=== PATIENT | female | born 1985 | race Caucasian/White ===

== ENCOUNTER 2016-06-16 19:12 | Inpatient (IN) ==
[2016-06-16 20:41] LABS: MANUAL DIFF NEEDED? NO
[2016-06-16 20:48] LABS: BASO% 0.2 % (0.0-0.8); EOS# 0.78 X1000 (0.0-0.7); EOS% 9.1 % (0.0-10.0); HEMATOCRIT 37.8 % (37.0-47.0); HEMOGLOBIN 12.1 g/dL (12.0-16.0); IMM GRAN# 0.02 X1000 (0.0-0.04); IMM GRAN% 0.2 % (0.0-0.5); LYMPH# 2.02 X1000 (1.2-3.4); LYMPH% 23.5 % (20.5-51.1); MCH 26.8 PG (27-31); MCV 83.8 FL (81-99); MONO# 0.65 X1000 (0.11-0.59); MONO% 7.6 % (1.7-9.3); MPV 10.3 FL (7.4-10.4); NEUT% 59.4 % (42.2-75.2); PLT 304 X1000 (130-400); RBC 4.51 XMIL (4.2-5.4)
[2016-06-16 20:49] LABS: URINE SOURCE CLEAN CATCH
[2016-06-16 21:02] LABS: AGAP 9; ALBUMIN 3.9 g/dL (3.5-5.0); ALKALINE PHOSPHATASE 94 U/L (32-104); AMYLASE 37 U/L (20-200); BUN 11 mg/dL (8-22); CALCIUM 8.9 mg/dL (8.8-10.2); CHLORIDE 100 mmol/L (98-107); COSMO 273; GOT 18 U/L (10-30); GPT 21 U/L (10-36); LIPASE 18 U/L (13-60); POTASSIUM 3.5 mmol/L (3.5-5.1); SODIUM 137 mmol/L (136-145); TCO2 28 mmol/L (25-35); TOTAL PROTEIN 6.9 g/dL (6.3-8.3)
[2016-06-16 21:36] LABS: BILIRUBIN URINE NEGATIVE (NEGATIVE); BLOOD URINE TRACE (NEGATIVE); CLARITY CLEAR (CLEAR); COLOR YELLOW; GLUCOSE URINE NEGATIVE (NEGATIVE); LEUKOCYTES URINE TRACE (NEGATIVE); NITRITE URINE NEGATIVE (NEGATIVE); PROTEIN URINE NEGATIVE (NEGATIVE); URINE EPITHELIAL CELLS <10 /HPF (<10); URINE RBC <10 /HPF (<10); URINE WBC <10 /HPF (<10); UROBILINOGEN URINE 4+(12 mg/dL)
[2016-06-16 21:37] LABS: URINE CULTURE PL NEEDED? YES
[2016-06-16] MEDS ORDERED: MORPHINE IV ONE (22:07)
[2016-06-16] MEDS ORDERED: ZOFRAN IV ONE ×2 (22:07→23:53)
[2016-06-16] MEDS ORDERED: NS 1,000 ML IV ONE (22:07)
[2016-06-16] MEDS ORDERED: ZOSYN 3.375 GM/NS 50 ML IV ONE (23:50)
--- NOTE | 2016-06-16 23:51 | PROVIDER DOCUMENTATION ---
HPI-Abdominal Pain/GI Problem - General Chief Complaint: Abdominal Pain Stated Complaint: RIGHT SIDE PAIN Time Seen by Provider: 06/16/16 20:16 Source: patient Allergies/Adverse Reactions: Patient Allergies Allergy/AdvReac Type Severity Reaction Status Date / Time latex Allergy SWELLING Verified 08/20/15 09:51 Home Medications: No Home Medications 06/16/16 - History of Present Illness-ABD Nature of Presenting Problems: 30 year old F presents to the ED with a cc of RLQ ABD pain, nausea, vomiting, diarrhea, fever, and chills with an onset of 2 days ago. PT is 3 weeks post . Abdominal Pain Onset Location: reports: RLQ Pain Radiation: reports: no radiation Quality of Pain: reports: aching Severity in ED: reports: mild Onset/Duration: reports: 2 days ago Timing: reports: still present Activities at Onset: reports: none Modifying Factors: improves with: nothing Associated Symptoms: reports: diarrhea, fatigue, fever/chills, nausea, vomiting Bruising or Bleeding Gums?: No Similar Symptoms Previously?: No Recently seen or treated by another doctor?: No Review of Systems - Adult - REVIEW OF SYSTEMS - ADULT Constitutional: reports: chills, fever, fatique Eyes: reports: no symptoms reported Ears, Nose, Mouth & Throat: reports: no symptoms reported Cardiovascular: reports: no symptoms reported Respiratory: denies: cough, shortness of breath Gastrointestinal: reports: abdominal pain, diarrhea, nausea, vomiting Genitourinary: reports: no symptoms reported Musculoskeletal: reports: no symptoms reported Integumentary: reports: no symptoms reported Neurological: reports: no symptoms reported Psychiatric: reports: no symptoms reported Endocrine: reports: no symptoms reported Hematologic/Lymphatic: reports: no symptoms reported Allergic/Immunologic: reports: no symptoms reported All Other Systems: Reviewed and Negative Past History - Adult - PAST MEDICAL HISTORY-ADULT Review of Records: reports: Nursing Assessment Review, Medications Reviewed Major Childhood Illnesses: reports: denies history Obstetrical/Gynecological: reports: other (cervical cancer) Genitourinary: reports: chronic UTI's, other (STD'S, BACTERAL VAGINOSIS, LAST std 2008) - PRIOR SURGERIES/PROCEDURES Surgical/Procedure History: reports: tonsillectomy - IMMUNIZATION STATUS Childhood Immunizations: See Nurse Assessment Flu Vaccine: See Nurse Assessment Physical Exam-General - PHYSICAL EXAM-ADULT Initial Vital Signs Reviewed: Yes - CONSTITUTIONAL General Appearance: appears well, alert, no apparent distress - RESPIRATORY Respiratory: chest non-tender, lungs clear, normal breath sounds - CARDIOVASCULAR Cardiovascular: normal peripheral pulses, regular rate, rhythm, no edema - GASTROINTESTINAL (ABDOMEN) Abdominal Exam: normal bowel sounds, soft, tenderness (RLQ), McBurney's point tenderness. negative: obturator sign, prominent aortic pulsations, psoas, Rovsing's sign - MUSCULOSKELETAL Extremity: normal inspection - SKIN Integumentary: normal color, normal turgor, warm/dry - PSYCHIATRIC Psych/Mental Status: normal mood/affect, normal thought content, normal thought process, oriented x 3 Progress - PLAN OF CARE/RESULTS Progress/Plan/Lab Results: plan of care: imaging, labs, fluids, medications 0031: Dr. Palencia at bedside with pt. Orders Category Date Time Status CT ABD/PELVIS W/ IV CONT ONLY [CT] Stat Exams 06/16/16 22:07 Taken FLAT/UPRIGHT ABD/1 VIEW CHEST [RAD] Stat Exams 06/16/16 19:49 Taken AMYLASE [CHEM] Stat Lab 06/16/16 20:26 Completed CBC WITH DIFF [HEME] Stat Lab 06/16/16 20:26 Completed COMPREHENSIVE METABOLIC PANEL [CHEM] Stat Lab 06/16/16 20:26 Completed LIPASE [CHEM] Stat Lab 06/16/16 20:[address] W/POSS RFLX CULT [URINALYSIS] Stat Lab 06/16/16 19:50 Completed URINE CULTURE [RM] Routine Lab 06/16/16 21:37 Received 0.9% Sodium Chloride Inj [Ns] 1,000 ml Med 06/16/16 22:07 Discontinued IV 999 mls/hr Morphine Med 06/16/16 22:07 Discontinued 4 mg IV NOW ONE Ondansetron [Zofran] Med 06/16/16 22:07 Discontinued 4 mg IV NOW ONE Piperacil/Tazobact 3.375 gm/Ns [Zosyn 3.375 gm/Ns] 50 Med 06/16/16 23:50 Active ml IV NOW Vital Signs - 24 hr 06/16/16 19:45 Temperature 99 F Pulse Rate 80 Respiratory 18 Rate Blood Pressure 125/76 O2 Sat by Pulse 99 Oximetry Pt/Family given results. Pt will be admitted to Dr. Palencia. PT/Family in agreement with plan of care. - XRAY 1 XRAY Study: Abdomen Impression: Normal XRAY Interpretation: chest: NAD ABD: NSBGP : Dr. García - CT/MRI 1 CT Study: Abdomen, Pelvis Impression: Abnormal CT Results: acute appendicitis - CONSULTS/PCP/HOSPITALIST Notification #1 *Consult/PCP/Hospitalist*: Real Rad Time Discussed: 23:46 Consult Disposition: other (acute appendicitis) #2 Consult: Dr. Palencia Time Discussed: 23:49 Consult Disposition: Will see in ED, Admit ([facility]) Departure - Departure Time of Disposition Order: 00:15 DIAGNOSIS: Appendicitis Qualifiers: Appendicitis type: acute appendicitis Acute appendicitis type: unspecified acute appendicitis type Qualified Code(s): K35.80 - Unspecified acute appendicitis Disposition: ADMITTED INPATIENT 09 Certified Medical Emergency: Emergent Condition: Stable Attestation - Scribe Verification/Attestation Scribe:: Dee Domínguez Acting as Scribe for:: Irvin Mcdonnell Scribe documention review:: This chart was documented by a scribe and accurately reflects the service the provider performed and the decisions made by the provider. Physician Attestation - Physician Attestation I, the provider, attest to the following statement:: Irvin Mcdonnell Physician documentation Attestation:: This documentation recorded by the scribe accurately reflects the service I personally performed and the decisions made by me.
[2016-06-16] MEDS ORDERED: DILAUDID IV ONE (23:53)
--- NOTE | 2016-06-17 01:44 | HISTORY AND PHYSICAL ---
DATE OF ADMISSION: 06/17/2016 HISTORY OF PRESENT ILLNESS: This is a 30-year-old female, who is now 3 weeks from a vaginal delivery of a healthy boy, who presented with approximately 12 hours of right lower quadrant/periumbilical pain. This pain has progressed. Initially it started off as a vague, kind of crampy type pain, that radiated from her umbilicus to more focal severe pain in the right lower quadrant. She has had decreased appetite with this. Denies any nausea, vomiting, and no fevers. This prompted her admission to the emergency department, where a CT scan was obtained, that showed evidence of acute appendicitis. REVIEW OF SYSTEMS: Ten point negative except for what is mentioned in her HPI. PAST MEDICAL HISTORY: No chronic medical issues. PAST SURGICAL HISTORY: 1. She has had several laparoscopic procedures for what sounds like gynecologic issues, unclear exactly what these might be, and she has also had a cervical resections or ablations for dysplasia. 2. Tonsillectomy, adenoidectomy. SOCIAL HISTORY: Quit smoking approximately a year ago, when she became . Quit alcohol around a year ago as well. She did drink recently since delivering. Denies any other drugs. FAMILY HISTORY: Stroke, heart disease and some cancers. MEDICATIONS: None. PHYSICAL EXAM: General: She is alert, lying in bed. Cardiovascular: Normal rate, regular rhythm. Pulmonary: No increased work of breathing. Abdominal: Soft, nondistended. She has focal tenderness in her right lower quadrant with some rebound and guarding here. There is no evidence of diffuse peritonitis. Integument: Warm, dry without jaundice, and no lower extremity edema is noted. LABS: I reviewed her labs. White count is normal at 8, hematocrit also is appropriate for this patient. Creatinine is normal as well. Urinalysis shows no signs of gross infection. CT of abdomen pelvis with IV contrast shows a dilated fluid-filled appendix with stranding. I don't see any significant amount of free fluid around the appendix to suggest perforation. There I no free air. ASSESSMENT AND PLAN: A 30-year-old female with acute appendicitis. I do not see any evidence of perforation. She received IV antibiotics in the emergency department. We discussed risks, benefits, alternatives with the patient. She consents to a laparoscopic appendectomy. We discussed the possibility of findings, perforation, time of surgery, and that her chance of abscess if this develops, if this were to occur is much higher. We will transfer to [facility], and plan to proceed to the operating room early this morning.
[2016-06-17] MEDS ORDERED: XYLOCAINE 1%/EPI 1:100,000 ONE (05:00)
[2016-06-17] MEDS ORDERED: SENSORCAINE 0.25%/EPI 1:200,000 ONE (05:00)
[2016-06-17] MEDS ORDERED: LR 1,000 ML ONE ×2 (05:00→06:41)
[2016-06-17] MEDS: MORPHINE ONE ×2 (06:22→06:29)
[2016-06-17] MEDS ORDERED: FENTANYL ONE (06:25)
[2016-06-17] MEDS ORDERED: DIPRIVAN 1% ONE (06:26)
[2016-06-17] MEDS ORDERED: ZOSYN 3.375 GM/NS 50 ML IV ONE (07:00)
[2016-06-17] MEDS ORDERED: LR 1,000 ML IV SCH (07:05)
--- NOTE | 2016-06-17 07:49 | Diag Imaging Result Document ---
PROCEDURE NAME: FLAT/UPRIGHT ABD/1 VIEW CHEST - 06/16/2016 FRONTAL CHEST X-RAY AND 2 VIEWS OF THE ABDOMEN, 06/16/2016: COMPARISON: None. FINDINGS: The chest is clear. There is a nonobstructive bowel gas pattern. No free air or abnormal calcifications. IMPRESSION: No acute disease.
--- NOTE | 2016-06-17 08:25 | Diag Imaging Result Document ---
PROCEDURE NAME: CT ABD/PELVIS W/ IV CONT ONLY - 06/16/2016 CT ABDOMEN AND PELVIS WITH INTRAVENOUS CONTRAST: A CT dose reduction protocol was used. COMPARISON: None. FINDINGS: The lung bases are clear and the heart size is normal. There is probably a tiny left renal stone that is nonobstructing measuring about 2 mm. The liver, gallbladder , spleen, pancreas, and adrenals are normal. The vermiform appendix is fluid filled and dilated with abnormal enhancement. No free air or free fluid. There is mild constipation. Urinary bladder, uterus, and rectum are normal. Bony structures are intact. IMPRESSION: 1. Acute appendicitis. 2. Probable nonobstructing left renal stone. 3. Constipation. [facility]
[2016-06-17] MEDS ORDERED: ZOFRAN ONE (08:27)
[2016-06-17] MEDS ORDERED: NEOSTIGMINE ONE (08:27)
[2016-06-17] MEDS ORDERED: NORCURON ONE (08:27)
[2016-06-17] MEDS ORDERED: EXTENSION SET 32 IN 4522 ONE (08:28)
[2016-06-17] MEDS ORDERED: ROBINUL ONE (08:28)
[2016-06-17] MEDS ORDERED: XYLOCAINE-MPF 2% ONE (08:28)
[2016-06-17] MEDS ORDERED: LR 2,000 ML ONE (08:28)
[2016-06-17] MEDS ORDERED: ANESTHESIA PB SET 88 IN 5742 ONE (08:28)
[2016-06-17] MEDS ORDERED: DECADRON ONE (08:28)
[2016-06-17] MEDS ORDERED: QUELICIN (DOSE) ONE (08:28)
[2016-06-17] MEDS: NORCO-7.5 PO PRN ×3 (08:49→18:13)
[2016-06-17] MEDS: ZOFRAN IV PRN ×2 (08:50→12:50)
--- NOTE | 2016-06-17 09:58 | OPERATIVE NOTE ---
PROCEDURE DATE: 06/17/2016 PREOPERATIVE DIAGNOSIS: Acute appendicitis. POSTOPERATIVE DIAGNOSIS: Acute appendicitis. PROCEDURE PERFORMED: Laparoscopic appendectomy. COMPLICATION: None. ESTIMATED BLOOD LOSS: 10 mL. SPECIMENS: Appendix. OPERATIVE INDICATIONS: This is a 30-year-old female, 3 weeks , who presented with worsening right lower quadrant pain. CT scan showed a dilated fluid-filled appendix with stranding. She had an exam consistent with acute appendicitis. OPERATIVE FINDINGS: There is a non-perforated, inflamed, distended appendix and, otherwise, normal adnexal structures. The uterus was quite large and boggy consistent with her state. OPERATIVE NOTE: Risks, benefits, alternatives were discussed with the patient, and she consented to the procedure. She was initiated on scheduled antibiotics in the Emergency Department. Procedure to be performed was confirmed in the preoperative area. She was taken to the operating room where general anesthesia was induced without complication. Celis catheter was placed. Her abdomen is prepped with chlorhexidine solution and draped in usual fashion and she was secured to the bed. Time-out was performed between the nursing, surgical, and anesthesia staff. All agreed with the procedure. After time-out was performed, a periumbilical block was made with local anesthetic. We made a curvilinear infraumbilical incision and carried this down to the fashion and incised the fascia along the midline and entered the abdomen in a controlled fashion and placed a 12 mm Anel trocar and split that in 15 mmHg. We then placed a 5 mm trocar in the suprapubic location under direct visualization above the level of the bladder and then one in the left lower quadrant lateral to the epigastric vessels care made to protect these. We placed her in Trendelenburg position, grasped the cecum, elevated this, and the appendix became apparent. We made a hole in the mesentery at the base of the appendix and divided the appendix from the base of the cecum with a gold-load 30 mm stapler. This required 2 fires as there were some small residual left posteriorly. We then used another gold-load stapler to take the mesoappendix. We inspected the stump. It was good closure. There was hemostasis. We then placed the appendix in the EndoCatch bag. Irrigated the wound. After inspecting the abdomen, again, we desufflated the abdomen. We removed our trocars under direct visualization prior to deflating. Closed the fascia with interrupted 0 Vicryl sutures, closed the skin with 4-0 Monocryl. All sponge, instrument, and needle counts were correct x2. We passed the specimen off the table. She tolerated it well. The Celis was removed. The patient was transferred to PACU in good condition, and I spoke with the family.
[2016-06-17 15:49] VITALS: BP 116/77
== END 2016-06-17 19:05 | disposition home or self-care (01) | DRG 769 ==
LOC: P.ED 19:12 → 4N 06-17 00:26
PROVIDERS: ADMIT Surgery; ATTEND Surgery
PROC: 0DTJ4ZZ Resection of Appendix, Percutaneous Endoscopic Approach (ICD-10-PCS; principal; 2016-06-17 05:09)
DX: O99.63 Diseases of the digestive system complicating the puerperium (principal); K35.80 Unspecified acute appendicitis; Z85.41 Personal history of malignant neoplasm of cervix uteri; Z87.440 Personal history of urinary (tract) infections; Z87.891 Personal history of nicotine dependence; Z82.49 Family history of ischemic heart disease and other diseases of the circulatory system
CPT/HCPCS: 74022; 74177; 80053; 81001; 82150; 83690; 85025; 87088; 88304; J0330; J1100; J1170; J2270; J2405; J2543; J3010; J7030; J7120; Q9967; J2710